=== PATIENT | female | born 1985 | race Caucasian/White ===

== ENCOUNTER 2017-06-22 21:46 | Outpatient (CLI) | payer OTHER ==
[2017-06-22 23:00] LABS: APPEARANCE,URINE CLEAR; BILIRUBIN,URINE NEGATIVE (NEGATIVE); GLUCOSE, URINE NEGATIVE (NEGATIVE); KETONES,URINE 20 mg/dL (NEGATIVE); LEUKOCYTE ESTERASE,URINE NEGATIVE (NEGATIVE); NITRITE,URINE NEGATIVE (NEGATIVE); PROTEIN,URINE NEGATIVE (NEGATIVE); URINE SPECIFIC GRAVITY 1.003; UROBILINOGEN,URINE NEGATIVE mg/dL (<2.0)
[2017-06-22] MEDS ORDERED: CEFAZOLIN 2 GM/D5W RTU 2 GM/50 ML RTUPB IV ONE ×2 (23:00→23:22)
[2017-06-22] MEDS ORDERED: ACETAMINOPHEN 325 MG TABLET PO ONE (23:00)
[2017-06-22 23:16] LABS: URINE BARBITURATES SCREEN NEGATIVE; URINE METHADONE SCREEN NEGATIVE; URINE OPIATES LOW NEGATIVE; URINE PHENCYCLIDINE SCREEN NEGATIVE
[2017-06-22] MEDS ORDERED: ACETAMINOPHEN 325 MG TABLET ONE (23:21)
[2017-06-22] MEDS: RINGERS SOLUTION,LACTATED 1,000 ML IV PRN (23:26)
[2017-06-22 23:33] LABS: ABSOLUTE EOSINOPHILS # (AUTO) 0.2 10^3/uL (0.0-0.6); ABSOLUTE LYMPHOCYTES (AUTO) 0.6 10^3/uL (0.5-4.7); ABSOLUTE MONOCYTES (AUTO) 0.5 10^3/uL (0.1-1.4); ABSOLUTE NEUT (AUTO) 6.4 10^3/uL (1.7-8.2); BASOPHILS % (AUTO) 0.3 % (0-2); EOSINOPHILS % (AUTO) 2.2 % (0-6); HEMATOCRIT 31.8 % (36.0-47.0); HGB HCT DIFFERENCE 1.2; LYMPHOCYTES % (AUTO) 7.4 % (13-45); MEAN CORPUSCULAR HEMOGLOBIN 28.3 pg (27.0-33.4); MEAN CORPUSCULAR HGB CONC 34.6 g/dL (32.0-36.0); MEAN CORPUSCULAR VOLUME 82 fl (80-97); MONOCYTES % (AUTO) 6.6 % (3-13); RED BLOOD COUNT 3.88 10^6/uL (3.72-5.28); RED CELL DISTRIBUTION WIDTH 14.6 % (11.5-14.0); SEGMENTED NEUTROPHILS % (AUTO) 83.5 % (42-78); WHITE BLOOD COUNT 7.7 10^3/uL (4.0-10.5)
[2017-06-23 00:05] LABS: ALANINE AMINOTRANSFERASE 27 U/L (9-52); ALBUMIN 3.3 g/dL (3.5-5.0); ALKALINE PHOSPHATASE 97 U/L (38-126); ANION GAP 10 (5-19); ASPARTATE AMINO TRANSFERASE 30 U/L (14-36); BILIRUBIN,DIRECT 0.3 mg/dL (0.0-0.4); BILIRUBIN,TOTAL 0.4 mg/dL (0.2-1.3); CALCIUM 9.9 mg/dL (8.4-10.2); CARBON DIOXIDE 21 mmol/L (22-30); CHLORIDE 105 mmol/L (98-107); CREATININE RESULT 0.53 mg/dL (0.52-1.25); GLUCOSE 89 mg/dL (75-110); POTASSIUM 3.5 mmol/L (3.6-5.0); SODIUM 135.8 mmol/L (137-145); TOTAL PROTEIN 6.4 g/dL (6.3-8.2)
[2017-06-23 00:06] LABS: BLOOD UREA NITROGEN < 2 mg/dL (7-20)
[2017-06-23] MEDS: RINGERS SOLUTION,LACTATED 1,000 ML IV PRN (00:32)
--- NOTE | 2017-06-23 03:00 | Non Stress Test Report ---
Non Stress Test Datetime Report Generated by CPN: 06/23/2017 03:00 DEMOGRAPHIC Test Number: 1 EGA NST: 32.3 INDICATION Indication for Study: Ordered by Provider VITAL SIGNS Temperature - NST: 100.0 Pulse - NST: 114 RESP - NST: 16 NBPSYS NST: 98 NBPDIA NST: 49 URINE RESULTS Urine Protein, NST: Negative Urine Ketones - NST: Positive Urine Glucose - NST: Negative Urine Blood - NST: Negative MONITORING Monitor Explained: Monitor Explained; Test Explained; Patient Verbalized Understanding Time on Monitor: 06/22/2017 22:15 Time off Monitor: 06/23/2017 01:53 NST Duration: 218 NST INTERVENTIONS NST Interventions: PO Hydration; IV Fluids BABY A: [id number] BABY A Movement : Present; Decreased Contraction Frequency : irregular with UI FHR Baseline : 135 Accelerations : 15X15 Decelerations : None Variability : Moderate 6-25bpm NST Review: Meets Criteria for Reactive NST NST Review and Verified By : Elias Clifford RN NST Results: Reactive NST REPORT Report Trigger: Send Report
== END 2017-06-23 02:11 | disposition home or self-care (01) ==
LOC: LC 21:46
PROVIDERS: ATTEND Specialist
PROC: 4A1HXCZ Monitoring of Products of Conception, Cardiac Rate, External Approach (ICD-10-PCS; principal; 2017-06-22)
DX: O47.03 False labor before 37 completed weeks of gestation, third trimester (principal); O23.43 Unspecified infection of urinary tract in pregnancy, third trimester; Z3A.32 32 weeks gestation of pregnancy
CPT/HCPCS: 59025; 36415; 87070; 87880; 85025; 86308; 80053; 81001; 80307; J0690

== ENCOUNTER 2017-08-15 13:31 | Inpatient (IN) | payer OTHER ==
[2017-08-15] MEDS ORDERED: RINGERS SOLUTION,LACTATED 300 ML IV ONE (14:40)
[2017-08-15] MEDS ORDERED: OXYTOCIN/NORMAL SALINE 20 UNIT/1,000 ML RTUINJ IV PRN (14:40)
[2017-08-15 14:41] LABS: APPEARANCE,URINE CLEAR; BILIRUBIN,URINE NEGATIVE (NEGATIVE); GLUCOSE, URINE NEGATIVE (NEGATIVE); KETONES,URINE TRACE mg/dL (NEGATIVE); LEUKOCYTE ESTERASE,URINE NEGATIVE (NEGATIVE); NITRITE,URINE NEGATIVE (NEGATIVE); PROTEIN,URINE NEGATIVE (NEGATIVE); URINE SPECIFIC GRAVITY 1.005; UROBILINOGEN,URINE NEGATIVE mg/dL (<2.0)
[2017-08-15 15:07] LABS: URINE BARBITURATES SCREEN NEGATIVE; URINE METHADONE SCREEN NEGATIVE; URINE OPIATES LOW NEGATIVE; URINE PHENCYCLIDINE SCREEN NEGATIVE
[2017-08-15 15:30] LABS: ABSOLUTE EOSINOPHILS # (AUTO) 0.5 10^3/uL (0.0-0.6); ABSOLUTE MONOCYTES (AUTO) 0.7 10^3/uL (0.1-1.4); ABSOLUTE NEUT (AUTO) 7.5 10^3/uL (1.7-8.2); BASOPHILS % (AUTO) 0.3 % (0-2); EOSINOPHILS % (AUTO) 4.5 % (0-6); HEMATOCRIT 32.8 % (36.0-47.0); HEMOGLOBIN 11.5 g/dL (12.0-15.5); HGB HCT DIFFERENCE 1.7; MEAN CORPUSCULAR HEMOGLOBIN 28.3 pg (27.0-33.4); MEAN CORPUSCULAR HGB CONC 35.2 g/dL (32.0-36.0); MEAN CORPUSCULAR VOLUME 80 fl (80-97); MONOCYTES % (AUTO) 6.2 % (3-13); RED BLOOD COUNT 4.08 10^6/uL (3.72-5.28); RED CELL DISTRIBUTION WIDTH 16.2 % (11.5-14.0); WHITE BLOOD COUNT 10.7 10^3/uL (4.0-10.5)
[2017-08-15] MEDS ORDERED: OXYTOCIN/NORMAL SALINE 20 UNIT/1,000 ML RTUINJ ONE (15:39)
[2017-08-15] MEDS ORDERED: MISOPROSTOL 0.1 MG TABLET PV ONE (20:50)
[2017-08-15] MEDS ORDERED: MISOPROSTOL 0.1 MG TABLET PO ONE (20:53)
[2017-08-15] MEDS ORDERED: ZOLPIDEM TARTRATE 5 MG TABLET PO ONE (20:54)
[2017-08-15] MEDS ORDERED: MISOPROSTOL 0.1 MG TABLET ONE (22:12)
[2017-08-15] MEDS: RINGERS SOLUTION,LACTATED 1,000 ML IV PRN (22:12)
[2017-08-16] MEDS ORDERED: MISOPROSTOL 0.1 MG TABLET PO SCH (02:00)
[2017-08-16] MEDS ORDERED: MISOPROSTOL 0.1 MG TABLET PV SCH (02:00)
[2017-08-16] MEDS ORDERED: MISOPROSTOL 0.1 MG TABLET ONE (02:27)
[2017-08-16] MEDS: RINGERS SOLUTION,LACTATED 1,000 ML IV PRN ×3 (04:20→15:11)
[2017-08-16] MEDS ORDERED: CLINDAMYCIN 900 MG/D5W RTU 50 ML IV ONE ×2 (07:43→15:30)
[2017-08-16] MEDS: CLINDAMYCIN 900 MG/D5W RTU 50 ML IV SCH ×2 (07:45→15:40)
[2017-08-16] MEDS ORDERED: EPHEDRINE SULFATE INJ 50 MG/1 ML AMPULE ONE (08:29)
[2017-08-16] MEDS ORDERED: FENTANYL/BUPIVACAINE/NS/PF 200 MCG/100 ML RTUINJ EPI ONE (08:30)
[2017-08-16] MEDS ORDERED: BUPIVACAINE HCL 0.25 % INJ/PF (2.5 MG/1 ML) 30 ML VIAL ONE (08:30)
[2017-08-16] MEDS ORDERED: FENTANYL/BUPIVACAINE/NS/PF 200 MCG/100 ML RTUINJ EPI PRN (08:34)
[2017-08-16] MEDS ORDERED: EPHEDRINE SULFATE INJ 50 MG/1 ML AMPULE IV PRN (08:34)
[2017-08-16] MEDS ORDERED: BUPIVACAINE HCL 0.25 % INJ/PF (2.5 MG/1 ML) 30 ML VIAL INFIL ONE (08:34)
[2017-08-16] MEDS ORDERED: BENZOIN/ALOE VERA/STORAX/TOLU TINCTURE 60 ML TP PRN (08:34)
[2017-08-16] MEDS ORDERED: OXYTOCIN/NORMAL SALINE 20 UNIT/1,000 ML RTUINJ IV PRN (08:35)
[2017-08-16] MEDS ORDERED: FENTANYL CITRATE INJ/PF 100 MCG/2 ML AMPUL ONE (15:01)
[2017-08-16] MEDS ORDERED: ONDANSETRON HCL INJ/PF 4 MG/2 ML SDV ONE (15:49)
[2017-08-16] MEDS ORDERED: ACETAMINOPHEN WITH CODEINE #3 TABLET ONE (16:24)
[2017-08-16] MEDS ORDERED: IBUPROFEN 800 MG TABLET ONE (16:25)
--- NOTE | 2017-08-16 17:41 | Delivery Summary ---
Del Sum A-C Datetime Report Generated by CPN: 08/16/2017 17:40 DELIVERY PERSONNEL DELIVERY PERSONNEL: [id number] Delivery Doctor:: Anamaria Platt MD Labor and Delivery Nurse:: Margaret Rubio RN Nursery Nurse:: Bobbi Welch RN Estimator Project Manager/DEMOLITIONIST: Jose De Jesus Aaron, SNOW FENCE ERECTOR MATERNAL INFORMATION Delivery Anesthesia: Epidural Medications After Delivery: Pitocin Drip 20 Units/1000ml NSS Estimated Blood Loss (ml): 250 Maternal Complications: None Provider Comments: Pt progressed to over intact perineum. Head delivered MESERET. Tight double nuchal cord clamped and cut on perineum. Shoulders and body delivered easliy thereafter. CHOPPER FEEDER/OP bulb suctioned. Apgars 6 and 8. Infeant had terminal meconium but no meconium noted before that. Placenta spont and intact. EBL 250. Uncertain length of ROM. LABOR SUMMARY EDC: 08/14/2017 00:00 No. Babies in Womb: 1 Attempted: No Labor Anesthesia: Epidural LABOR INFORMATION Reason for Induction: Oligohydramnios Onset of Labor: 08/16/2017 13:50 Complete Dilatation: 08/16/2017 15:47 Oxytocin: Induction Group B Beta Strep: Negative Steroids Given: None Reason Steroids Not Administered: Not Applicable MEMBRANES Membranes Rupture Method: Spontaneous Amniotic Fluid Color: Clear Amniotic Fluid Amount: None Amniotic Fluid Odor: Normal STAGES OF LABOR Stage 1 hr: 1 Stage 1 min: 57 Stage 2 hr: 0 Stage 2 min: 19 Stage 3 hr: 0 Stage 3 min: 3 Total Time in Labor hr: 2 Total Time in Labor min: 19 VAGINAL DELIVERY Episiotomy: None Laceration Extension: N/A Laceration Type: None Laceration Repair: Not Applicable Sponge Count Correct: Yes Sharps Count Correct: Yes CSECTION DELIVERY Primary Indication: N/A Secondary Indication: N/A CSection Incidence: N/A Labor: N/A Elective: N/A CSection Incision: N/A BABY A INFORMATION Delivery Date/Time: 08/16/2017 16:06 Method of Delivery: Vaginal Born in Route : No : N/A Forceps: N/A Vacuum Extraction: N/A Shoulder Dystocia : No PRESENTATION/POSITION BABY A Presentation: Cephalic Cephalic Presentation: Vertex Vertex Position: Left Occipital Anterior Breech Presentation: N/A PLACENTA INFORMATION BABY A Placenta Delivery Time : 08/16/2017 16:09 Placenta Method of Delivery: Spontaneous Placenta Status: Delivered SCORES BABY A Heart Rate 1 min: >100 bpm Resp Effort 1 min: Slow, Irregular Reflex Irritability 1 min: Cough or Sneeze or Pulls Away Muscle Tone 1 min: Some Flexion of Extremities Color 1 min: Blue/Pale Resuscitation Effort 1 min: Tactile Stimulation SCORE 1 MIN: 6 Heart Rate 5 min: >100 bpm Resp Effort 5 min: Slow, Irregular Reflex Irritability 5 min: Cough or Sneeze or Pulls Away Muscle Tone 5 min: Active Motion Color 5 min: Body [place], Extremities Blue Resuscitation Effort 5 min: Tactile Stimulation SCORE 5 MIN: 8 INFANT INFORMATION BABY A Gestational Age at Delivery: 40.2 Gestational Status: Full Term- 39- 40.6 Weeks Outcome : Liveborn Condition : Stable Infant Sex: Male IDENTIFICATION BABY A Infant Verification Date/Time: 08/16/2017 16:30 ID Band Number: [id number] Mother's Name Verified: Yes RN Verifying : B Baidy RN Additional Verifying Personnel: A Torres RN WEIGHT/LENGTH BABY A Birthweight (gm): 3295 Weight (lb): 7 Infant Weight (oz): 4 Length (in): 20.00 Infant Length (cm): 50.80 CORD INFORMATION BABY A No. Cord Vessels: 3 Nuchal Cord : Around Neck x2, Tight Cord Blood Taken: Yes-For Eval (Mom's Blood Type - or O+) Suction: Mouth; Nose ASSESSMENT BABY A Complications: Multiple Variable Decels; Oligohydramnios Infant Complications- Other: Terminal Mec, tight nuchal Physical Findings at Delivery: Bruising Respirations: Intercostal Retractions; Tachypnea Skin to Skin: No Circle Cutting Saw Operator/ALS Called : No Infant Care By: Karina Welch RN Transferred To: [facility] BABY B INFORMATION : N/A SIGNATURES Signature: with User ID: [email or web address]
--- NOTE | 2017-08-16 18:13 | Admission Physical ---
Datetime Report Generated by CPN: 08/16/2017 18:12 CURRENT ADMISSION Hx Assessment: The History has been Reviewed and is Current Chief Complaint: Sent from OB Office for Evaluation and Treatment - Please Specify Chief Complaint Other: colin of 1.7 Indication for Induction: Oligohydramnios Admit Impression- Other: leaking since friday Admit Plan: Admit to Unit; Initiate Labor Induction Protocol ALLERGIES Medication Allergies: Yes Medication Allergies: Penicillins/AZ/Generalized brenden (08/15/2017); peanut/Anaphylaxis (08/15/2017); garlic/SV/difficulty swal (08/15/2017); onion/SV/difficulty swal (08/15/2017); corn/SV/difficulty swal (08/15/2017); oats/SV/difficulty swal (08/15/2017); rice/SV/difficulty swal (08/15/2017); tree nut/SV/difficulty swal (08/15/2017); soy/SV/difficulty swal (08/15/2017) Medication Allergies: Penicillins/AZ/Generalized brenden (08/15/2017); peanut/Anaphylaxis (06/22/2017); garlic/SV/difficulty swal (08/15/2017); onion/SV/difficulty swal (08/15/2017); corn/SV/difficulty swal (08/15/2017); oats/SV/difficulty swal (08/15/2017); rice/SV/difficulty swal (08/15/2017); tree nut/SV/difficulty swal (08/15/2017); soy/SV/difficulty swal (08/15/2017) Medication Allergies: Penicillins/AZ/Generalized brenden (06/22/2017); peanut/Anaphylaxis (06/22/2017); garlic/SV/difficulty swal (06/22/2017); onion/SV/difficulty swal (06/22/2017); corn/SV/difficulty swal (06/22/2017); oats/SV/difficulty swal (06/22/2017); rice/SV/difficulty swal (06/22/2017); tree nut/SV/difficulty swal (06/22/2017); soy/SV/difficulty swal (06/22/2017) Medication Allergies: Penicillins (06/22/2017); peanut (06/22/2017); garlic (06/22/2017); onion (06/22/2017); corn (06/22/2017); oats (06/22/2017); rice (06/22/2017); tree nut (06/22/2017); soy (06/22/2017) Latex: Latex Allergies Food Allergies: peanut, all nuts, garlic, soy, onion, corn, rice, oats, Seafood OBSTETRICAL HISTORY EDC: 08/14/2017 00:00 : 2 Para: 1 Term: 1 : 0 SAB: 0 IAB: 0 Ectopic: 0 Livin Cesareans: 0 VBACs: 0 Multiple Births: 0 (Annotations: Data stored by CPN on behalf of user) Gestational Diabetes: No Rh Sensitization: No Incompetent Cervix: No HIMANSHU: No Infertility: No ART Treatment: No Uterine Anomaly: No IUGR: No Hx Previous C/S: No Macrosomia: No Hx Loss/Stillborn: No PIH: No Hx : No Placenta Previa/Abruption: No Depression/PP Depression: No PTL/PROM: No Post Hemorrhage: No Current Procedures: Ultrasound; NST Obstetrical History Comments: - 2014 G2- Current SEE RECORDS Alcohol: No Marijuana : No Cocaine: No Other Illicit Drugs: No Cigarettes: Never Smoker. 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 Surgery: No Heart Disease: No Hosp/Surgery: No Autoimmune Disorder: No Anesthetic Complications: No Kidney Disease: No Abnormal Pap Smear: No Neuro/Epilepsy: No Psychiatric Disorders: No Other Medical Diseases: No Hepatitis/Liver Disease: No Significant Family History: No Varicosities/Phlebitis: No Trauma/Violence : No Thyroid Dysfunction: No Medical History Comments: EOS, ezcema, food allergies, esophogeal scarring, upper endoscopy x 4, sinus surgery, oral surgery INFECTIOUS HISTORY Gonorrhea: No Genital Herpes: Yes Chlamydia: No Tuberculosis: No Syphilis: No Hepatitis: No HIV/AIDS Exposure: No Rash or Viral Illness: No HPV: No PHYSICAL EXAM General: Normal HEENT: Normal Neurologic: Normal Thyroid: Deferred Heart: Normal Lungs: Normal Breast: Normal Back: Normal Abdomen: Normal Genitourinary Exam: Normal Extremities: Normal DTRs: Normal Pelvic Type: Adequate Physical Exam Comments: pelvis proven 6 lbs 8oz, denies hsv lesions or prodromal symptoms Vital Signs: Reviewed VAGINAL EXAM Dilatation: 2 Effacement: 80 Station: -1 Contraction Comments: irregular FETUS A EGA: 40.1 Monitoring: External US FHR- Baseline: 135 Variability: Moderate 6-25bpm Accelerations: 15X15 Decelerations: None FHR Category: Category I Estimated Weight (gm): 3600 Presentation: Vertex Admit Comment: ? SROM on friday has felt continously wet. COLIN in office 1.7. No evidence of SROM. Hx elevated elevated white count that has had follow up Admit to L _ D Pitocin for labor induction. GBS neg. Afebrile May have epidural prn PLANS FOR LABOR AND DELIVERY Labor and Delivery: None Pain Management: Epidural Feeding Preference: Breast Benefit of Breast Feed Discussed: Yes Circumcision: Yes INFORMED CONSENT Assignment: Shonda Magana MD Signature: with User ID: Tucker : with User ID: [email or web address]
[2017-08-16] MEDS ORDERED: ACETAMINOPHEN WITH CODEINE #3 TABLET PO PRN ×2 (18:29)
[2017-08-16] MEDS ORDERED: DIPH/PERTUSS(ACELL)/TETANUS VAC/PF 0.5 ML SYR (>=10YO) IM PRN (18:29)
[2017-08-16] MEDS ORDERED: DIBUCAINE 1% OINTMENT 28 GM TP PRN (18:29)
[2017-08-16] MEDS ORDERED: MEASLES,MUMPS&RUBELLA VACC/PF 0.5 ML VIAL SUBCUT PRN (18:29)
[2017-08-16] MEDS ORDERED: BENZOCAINE/MENTHOL AEROSOL SPRAY 56 ML TOP PRN (18:29)
[2017-08-16] MEDS ORDERED: ZOLPIDEM TARTRATE 5 MG TABLET PO PRN (18:29)
[2017-08-16] MEDS: IBUPROFEN 800 MG TABLET PO SCH (21:53)
[2017-08-17] MEDS: IBUPROFEN 800 MG TABLET PO SCH ×3 (06:50→21:20)
[2017-08-17 07:41] LABS: HEMATOCRIT 35.7 % (36.0-47.0); HEMOGLOBIN 11.8 g/dL (12.0-15.5); HGB HCT DIFFERENCE -0.3; MEAN CORPUSCULAR VOLUME 82 fl (80-97); RED BLOOD COUNT 4.36 10^6/uL (3.72-5.28); RED CELL DISTRIBUTION WIDTH 16.3 % (11.5-14.0); WHITE BLOOD COUNT 13.6 10^3/uL (4.0-10.5)
--- NOTE | 2017-08-17 09:19 | PDOC PROGRESS REPORT ---
Subjective-OB Subjective: Post Delivery Day: 1 32 year old. Denies any needs at this time, states lochia is stable, voiding without difficulty, pain well controlled. Physical Exam (OB) Vital Signs: Temp Pulse Resp BP Pulse Ox 98.1 F 64 16 125/62 98 08/16/17 21:51 08/16/17 21:51 08/16/17 21:51 08/16/17 21:51 08/16/17 21:51 Intake & Output 08/16/17 08/17/17 08/18/17 06:59 06:59 06:59 Weight 76.35 kg - Lochia Lochia Amount: Small 10-25 ml Lochia Color: Rubra/Red - Abdomen Description: Soft, Round Hernia Present: No Fundal Description: Firm, Midline Fundal Height: u/u - u/2 Objective-Diagnostic Laboratory: 08/17/17 07:21 08/17/17 07:21 WBC 13.6 H RBC 4.36 Hgb 11.8 L Hct 35.7 L MCV 82 MCH 27.0 MCHC 33.0 RDW 16.3 H Plt Count 194 Assessment and Plan(PN) - Assessment and Plan (1) Delivery normal Is this a current diagnosis for this admission?: Yes Plan: routine pp care. - Time Spent with Patient Time with patient: Less than 15 minutes Critical Time spent with patient: Less than 15 minutes Medications reviewed and adjusted accordingly: Yes - Disposition Anticipated Discharge: Home Within: within 24 hours
[2017-08-17] MEDS: DOCUSATE SODIUM 100 MG CAPSULE PO SCH ×2 (10:00→17:26)
[2017-08-17] MEDS: PRENATAL VITAMIN W-O CA NO5/FE FUMARATE/FA CAPSULE PO SCH (10:01)
[2017-08-17] MEDS: FERROUS SULFATE 325 MG TABLET PO SCH ×2 (10:01→17:27)
[2017-08-17] MEDS: SENNOSIDES/DOCUSATE 8.6-50 MG 1 EACH TABLET PO SCH (14:30)
[2017-08-18] MEDS: IBUPROFEN 800 MG TABLET PO SCH ×2 (06:36→13:14)
[2017-08-18 08:33] VITALS: BP 117/67
[2017-08-18] MEDS: PRENATAL VITAMIN W-O CA NO5/FE FUMARATE/FA CAPSULE PO SCH (09:15)
[2017-08-18] MEDS: DOCUSATE SODIUM 100 MG CAPSULE PO SCH (09:15)
[2017-08-18] MEDS: SENNOSIDES/DOCUSATE 8.6-50 MG 1 EACH TABLET PO SCH (09:15)
[2017-08-18] MEDS: FERROUS SULFATE 325 MG TABLET PO SCH (09:15)
--- NOTE | 2017-08-18 12:05 | PDOC DISCHARGE SUMMARY ---
Final Diagnosis Discharge Date: 08/18/17 Discharge Data - Discharge Medication Home Medications: Fluticasone/Salmeterol [Advair 250-50 Diskus 28 dose] 1 puff IH Q2DAYS 06/22/17 Loratadine [Claritin 10 mg Tablet] 1 tab PO DAILY 06/22/17 Omeprazole Magnesium [Prilosec Otc] 2 tab PO DAILY 06/22/17 No122/Iron/Folic Acid [ Multi Tablet] 1 tab PO DAILY 06/22/17 Valacyclovir HCl [Valtrex] 1 tab PO DAILY 08/15/17 Ibuprofen [Motrin 800 mg Tablet] 800 mg PO Q8HP PRN #30 tablet 08/18/17 Reason(s) for Admission: Induction of Labor - oligohydramnious Procedures: Ultrasound Intrapartum Procedure(s): Spontaneous Vaginal Delivery - Diagnosis Test Laboratory: Temp Pulse Resp BP Pulse Ox 97.9 F 69 15 117/67 100 08/18/17 08:25 08/18/17 08:25 08/18/17 08:25 08/18/17 08:25 08/18/17 08:25 08/15/17 08/15/17 08/17/17 14:11 15:02 07:21 RBC 4.08 4.36 Hgb 11.5 L 11.8 L Hct 32.8 L 35.7 L Urine Opiates Screen NEGATIVE - Discharge information/Instructions Discharge Activity: Activity As Tolerated, Balance Activity w/Rest, No Lifting Over 10 Pounds, No Lifting/Push/Pulling, Pelvic Rest, Slowly Increase Activity, No tub bath Discharge Diet: Regular Disposition: HOME, SELF-CARE Follow up with: [facility] in: 4, Weeks
== END 2017-08-18 16:50 | disposition home or self-care (01) | DRG 775 ==
LOC: LC 13:31 → LR 13:47 → 2S 08-16 18:05
PROVIDERS: ADMIT Specialist; ATTEND Specialist
PROC: 10E0XZZ Delivery of Products of Conception, External Approach (ICD-10-PCS; principal; 2017-08-16)
PROC: 3E0234Z Introduction of Serum, Toxoid and Vaccine into Muscle, Percutaneous Approach (ICD-10-PCS; 2017-08-18)
DX: O41.03X0 Oligohydramnios, third trimester, not applicable or unspecified (principal); O69.1XX0 Labor and delivery complicated by cord around neck, with compression, not applicable or unspecified; O76 Abnormality in fetal heart rate and rhythm complicating labor and delivery; O77.0 Labor and delivery complicated by meconium in amniotic fluid; Z3A.40 40 weeks gestation of pregnancy; Z37.0 Single live birth; Z23 Encounter for immunization
CPT/HCPCS: 36415; 80307; 81005; 85025; 85027; 86592; 86850; 86900; 86901; 88307; 90715; J2405; J2590; J3010; J3490

== ENCOUNTER 2017-11-11 14:17 | Emergency (ER) | payer OTHER ==
[2017-11-11 14:23] VITALS: BP 129/79
[2017-11-11 15:32] LABS: ABSOLUTE BASOPHILS # (AUTO) 0.1 10^3/uL (0.0-0.2); ABSOLUTE EOSINOPHILS # (AUTO) 2.3 10^3/uL (0.0-0.6); ABSOLUTE LYMPHOCYTES (AUTO) 2.9 10^3/uL (0.5-4.7); ABSOLUTE MONOCYTES (AUTO) 0.6 10^3/uL (0.1-1.4); ABSOLUTE NEUT (AUTO) 8.2 10^3/uL (1.7-8.2); BASOPHILS % (AUTO) 0.9 % (0-2); EOSINOPHILS % (AUTO) 16.4 % (0-6); HEMATOCRIT 40.1 % (36.0-47.0); HEMOGLOBIN 13.2 g/dL (12.0-15.5); HGB HCT DIFFERENCE -0.5; LYMPHOCYTES % (AUTO) 20.8 % (13-45); MEAN CORPUSCULAR HEMOGLOBIN 27.9 pg (27.0-33.4); MEAN CORPUSCULAR HGB CONC 32.9 g/dL (32.0-36.0); MEAN CORPUSCULAR VOLUME 85 fl (80-97); RED BLOOD COUNT 4.73 10^6/uL (3.72-5.28); RED CELL DISTRIBUTION WIDTH 14.9 % (11.5-14.0); SEGMENTED NEUTROPHILS % (AUTO) 57.9 % (42-78); WHITE BLOOD COUNT 14.1 10^3/uL (4.0-10.5)
[2017-11-11 15:42] LABS: APPEARANCE,URINE SLIGHTLY-CLOUDY; BILIRUBIN,URINE NEGATIVE (NEGATIVE); GLUCOSE, URINE NEGATIVE (NEGATIVE); KETONES,URINE NEGATIVE (NEGATIVE); LEUKOCYTE ESTERASE,URINE TRACE (NEGATIVE); NITRITE,URINE NEGATIVE (NEGATIVE); PROTEIN,URINE NEGATIVE (NEGATIVE); URINE SPECIFIC GRAVITY 1.021; UROBILINOGEN,URINE NEGATIVE mg/dL (<2.0)
[2017-11-11 15:52] LABS: ALANINE AMINOTRANSFERASE 30 U/L (9-52); ALBUMIN 4.2 g/dL (3.5-5.0); ALKALINE PHOSPHATASE 103 U/L (38-126); ANION GAP 11 (5-19); ASPARTATE AMINO TRANSFERASE 25 U/L (14-36); BILIRUBIN,DIRECT 0.2 mg/dL (0.0-0.4); BILIRUBIN,TOTAL 0.2 mg/dL (0.2-1.3); BLOOD UREA NITROGEN 14 mg/dL (7-20); CALCIUM 9.2 mg/dL (8.4-10.2); CARBON DIOXIDE 29 mmol/L (22-30); CHLORIDE 105 mmol/L (98-107); CREATININE RESULT 0.88 mg/dL (0.52-1.25); GLUCOSE 94 mg/dL (75-110); LIPASE 113.8 U/L (23-300); POTASSIUM 3.6 mmol/L (3.6-5.0); TOTAL PROTEIN 6.8 g/dL (6.3-8.2)
--- NOTE | 2017-11-11 16:01 | RADIOLOGY REPORT (SQ) ---
EXAM DESCRIPTION: U/S ABDOMEN LIMITED W/O DOP COMPLETED DATE/TIME: 11/11/2017 3:52 pm REASON FOR STUDY: ruq pain COMPARISON: None. TECHNIQUE: Dynamic and static grayscale images acquired of the abdomen and recorded on PACS. Additio nal selected color Doppler and spectral images recorded. LIMITATIONS: None. FINDINGS: PANCREAS: No masses. Visualized pancreatic duct normal caliber. LIVER: No masses. Echotexture normal. LIVER VASCULATURE: Normal directional flow of the main portal vein and hepatic veins. GALLBLADDER: Echogenic wall with ring down artifact consistent with adenomyomatosis. ULTRASOUND-DETECTED DRAKE'S SIGN: Negative. INTRAHEPATIC DUCTS AND COMMON DUCT: CBD and intrahepatic ducts normal caliber. No filling defects. INFERIOR VENA CAVA: Normal flow. AORTA: No aneurysm. RIGHT KIDNEY: Normal size. Normal echogenicity. No solid or suspicious masses. No hydronephrosis. No calcifications. PERITONEAL AND RIGHT PLEURAL SPACE: No ascites or effusions. OTHER: No other significant findings. IMPRESSION: ADENOMYOMATOSIS OF THE GALLBLADDER. NO GALLSTONES OR OTHER SIGNIFICANT FINDINGS. OTHER VARGHESE UNREMARKABLE RIGHT UPPER QUADRANT ULTRASOUND. TECHNICAL DOCUMENTATION: JOB ID: [id number] [employer]- All Rights Reserved
--- NOTE | 2017-11-11 16:57 | ER Document Report ---
ED General - General Chief Complaint: Abdominal Pain Stated Complaint: ABDOMINAL PAIN Time Seen by Provider: 11/11/17 15:10 Mode of Arrival: Ambulatory Information source: Patient Notes: Patient complains of intermittent right upper quadrant abdominal pain. She states it is sharp. It is accompanied by decreased appetite. It does radiate into her back. It does get worse after eating and better with rest. No diarrhea and no problems with urination. No vaginal symptoms. The pain is moderate. TRAVEL OUTSIDE OF THE [place] IN LAST 30 DAYS: No - Related Data Allergies/Adverse Reactions: tree nut Allergy (Severe, Verified 08/15/17 14:58) difficulty swallowing, esophogeal irritation Penicillins Allergy (Mild, Verified 08/15/17 14:59) Generalized rash peanut Allergy (Verified 08/15/17 14:59) Anaphylaxis Past Medical History - General Information source: Patient - Social History Smoking Status: Never Smoker Frequency of alcohol use: None Drug Abuse: None Family History: Reviewed & Not Pertinent Patient has suicidal ideation: No Patient has homicidal ideation: No Pulmonary Medical History: Reports: Hx Asthma Neurological Medical History: Reports: Hx Migraine Renal/ Medical History: Denies: Hx Peritoneal Dialysis Musculoskeltal Medical History: Reports Hx Musculoskeletal Trauma Past Surgical History: Reports: Hx Oral Surgery - Immunizations Immunizations up to date: Yes Hx Diphtheria, Pertussis, Tetanus Vaccination: Yes Review of Systems - Review of Systems Constitutional: denies: Chills, Fever Cardiovascular: denies: Chest pain, Palpitations Respiratory: denies: Cough, Short of breath Gastrointestinal: Abdominal pain, Nausea, Vomiting -: Yes All other systems reviewed and negative Physical Exam - Vital signs Vitals: Temp Pulse Resp BP Pulse Ox 98.1 F 87 20 129/79 H 100 11/11/17 14:23 11/11/17 14:23 11/11/17 14:23 11/11/17 14:23 11/11/17 14:23 Interpretation: Hypertensive - General General appearance: Appears well, Alert - HEENT Head: Normocephalic, Atraumatic Eyes: Normal Pupils: PERRL - Respiratory Respiratory status: No respiratory distress Chest status: Nontender Breath sounds: Normal Chest palpation: Normal - Cardiovascular Rhythm: Regular Heart sounds: Normal auscultation Murmur: No - Abdominal Inspection: Normal Distension: No distension Bowel sounds: Normal Tenderness: Nontender Organomegaly: No organomegaly - Back Back: Normal, Nontender - Extremities General upper extremity: Normal inspection, Nontender, Normal color, Normal ROM , Normal temperature General lower extremity: Normal inspection, Nontender, Normal color, Normal ROM , Normal temperature, Normal weight bearing. No: Tip's sign - Neurological Neuro grossly intact: Yes Cognition: Normal Orientation: AAOx4 Yazmin Coma Scale Eye Opening: Spontaneous [place] Coma Scale Verbal: Oriented [place] Coma Scale Motor: Obeys Commands Yazmin Coma Scale Total: 15 Speech: Normal Motor strength normal: LUE, RUE, LLE, RLE Sensory: Normal - Psychological Associated symptoms: Normal affect, Normal mood - Skin Skin Temperature: Warm Skin Moisture: Dry Skin Color: Normal Course - Vital Signs Vital signs: Temp Pulse Resp BP Pulse Ox 98.1 F 87 20 129/79 H 100 11/11/17 14:23 11/11/17 14:23 11/11/17 14:23 11/11/17 14:23 11/11/17 14:23 - Laboratory Result Diagrams: 11/11/17 15:10 11/11/17 15:10 Laboratory results interpreted by me: 11/11/17 11/11/17 15:10 15:10 WBC 14.1 H RDW 14.9 H Eosinophils % 16.4 H Absolute Eosinophils 2.3 H Urine Blood LARGE H Ur Leukocyte Esterase TRACE H - Diagnostic Test Radiology reviewed: Image reviewed - Ultrasound shows had myomatosis of the gallbladder., Reports reviewed Discharge - Discharge Clinical Impression: Right upper quadrant abdominal pain Condition: Stable Disposition: HOME, SELF-CARE Instructions: Abdominal Pain ([facility]) Additional Instructions: Your blood pressure is mildly elevated. Please have this rechecked within 1 week by your doctor. Your gallbladder has polyps seen on ultrasound. No stones are seen. It is unclear if this is the cause of your pain. Therefore it is recommended that you follow-up with a surgeon as soon as possible. Forms: Elevated Blood Pressure, Return to Work Referrals: MICKY FOX MD [MARISA RUBIO] - Follow up in 1 week
== END 2017-11-11 17:08 | disposition home or self-care (01) ==
LOC: ER 14:17
DX: K82.8 Other specified diseases of gallbladder (principal); R10.11 Right upper quadrant pain; R11.2 Nausea with vomiting, unspecified; R63.0 Anorexia; J45.909 Unspecified asthma, uncomplicated; Z91.018 Allergy to other foods; Z88.0 Allergy status to penicillin; Z87.892 Personal history of anaphylaxis; Z91.010 Allergy to peanuts
CPT/HCPCS: 36415; 76705; 80053; 81001; 81025; 83690; 85025; 99284

== ENCOUNTER 2019-02-12 08:31 | Emergency (ER) | payer OTHER ==
[2019-02-12 08:53] LABS: APPEARANCE,URINE CLEAR; BILIRUBIN,URINE NEGATIVE (NEGATIVE); COLOR,URINE STRAW; GLUCOSE, URINE NEGATIVE (NEGATIVE); KETONES,URINE NEGATIVE (NEGATIVE); LEUKOCYTE ESTERASE,URINE NEGATIVE (NEGATIVE); NITRITE,URINE NEGATIVE (NEGATIVE); PROTEIN,URINE NEGATIVE (NEGATIVE); URINE SPECIFIC GRAVITY 1.001; UROBILINOGEN,URINE NEGATIVE mg/dL (<2.0)
--- NOTE | 2019-02-12 09:28 | ER Document Report ---
ED Medical Screen (RME) - General Chief Complaint: Abdominal Pain Stated Complaint: ABDOMINAL PAIN/FEVER Time Seen by Provider: 02/12/19 09:23 Notes: 33-year-old female patient with left lower quadrant abdominal pain for a few days, now radiating into the low back. Low-grade fever this morning. Some nausea. LMP was 02/04/2019, and finished on 02/08/2019. Brief exam shows patient is quite tender in the left lower quadrant abdomen. There is no CVA percussion tenderness. I have greeted and performed a rapid initial assessment of this patient. A comprehensive ED assessment and evaluation of the patient, analysis of test results and completion of the medical decision making process will be conducted by additional ED providers. TRAVEL OUTSIDE OF THE [place] IN LAST 30 DAYS: No - Related Data Allergies/Adverse Reactions: tree nut Allergy (Severe, Verified 02/12/19 08:33) difficulty swallowing, esophogeal irritation Penicillins Allergy (Mild, Verified 02/12/19 08:33) Generalized rash peanut Allergy (Verified 02/12/19 08:33) Anaphylaxis Past Medical History - Social History Chew tobacco use (# tins/day): No Frequency of alcohol use: Rare Drug Abuse: None Pulmonary Medical History: Reports: Hx Asthma Neurological Medical History: Reports: Hx Migraine Renal/ Medical History: Denies: Hx Peritoneal Dialysis Musculoskeltal Medical History: Reports Hx Musculoskeletal Trauma Past Surgical History: Reports: Hx Oral Surgery - Immunizations Immunizations up to date: Yes Hx Diphtheria, Pertussis, Tetanus Vaccination: Yes Physical Exam - Vital signs Vitals: Temp Pulse Resp BP Pulse Ox 98.0 F 93 16 131/71 H 100 02/12/19 08:50 02/12/19 08:50 02/12/19 08:50 02/12/19 08:50 02/12/19 08:50 Course - Vital Signs Vital signs: Temp Pulse Resp BP Pulse Ox 98.0 F 93 16 131/71 H 100 02/12/19 08:50 02/12/19 08:50 02/12/19 08:50 02/12/19 08:50 02/12/19 08:50
[2019-02-12 09:51] LABS: ABSOLUTE BASOPHILS # (AUTO) 0.1 10^3/uL (0.0-0.2); ABSOLUTE EOSINOPHILS # (AUTO) 0.4 10^3/uL (0.0-0.6); ABSOLUTE LYMPHOCYTES (AUTO) 2.6 10^3/uL (0.5-4.7); ABSOLUTE MONOCYTES (AUTO) 1.1 10^3/uL (0.1-1.4); ABSOLUTE NEUT (AUTO) 11.2 10^3/uL (1.7-8.2); BASOPHILS % (AUTO) 0.5 % (0-2); EOSINOPHILS % (AUTO) 2.5 % (0-6); HEMOGLOBIN 12.4 g/dL (12.0-15.5); LYMPHOCYTES % (AUTO) 16.7 % (13-45); MEAN CORPUSCULAR HEMOGLOBIN 26.8 pg (27.0-33.4); MEAN CORPUSCULAR HGB CONC 33.5 g/dL (32.0-36.0); MEAN CORPUSCULAR VOLUME 80 fl (80-97); MONOCYTES % (AUTO) 7.3 % (3-13); PLATELET COUNT 361 10^3/uL (150-450); RED BLOOD COUNT 4.63 10^6/uL (3.72-5.28); RED CELL DISTRIBUTION WIDTH 14.6 % (11.5-14.0); TOTAL CELLS COUNTED % (AUTO) 100 %; WHITE BLOOD COUNT 15.4 10^3/uL (4.0-10.5)
--- NOTE | 2019-02-12 10:07 | RADIOLOGY REPORT (SQ) ---
EXAM DESCRIPTION: CT ABD/PELVIS WITH IV ONLY COMPLETED DATE/TIME: 02/12/2019 9:59 am REASON FOR STUDY: LLQ abd pain w/ fever, nausea COMPARISON: None. TECHNIQUE: CT scan of the abdomen and pelvis performed using helical scanning technique with dynamic intravenous contrast injection. No oral contrast. Images reviewed with lung, soft tissue, and bone windows. Reconstructed coronal and sagittal MPR images reviewed. Delayed images for evaluation of the urinary system also acquired. All images stored on PACS. All CT scanners at this facility use dose modulation, iterative reconstruction, and/or weight based d osing when appropriate to reduce radiation dose to as low as reasonably achievable (ALARA). [facility]: Dose Right [facility]: CareDose [facility]: Dose Right [facility]: Teradose 4D [facility]: [email or web address] CONTRAST TYPE AND DOSE: contrast/concentration: Isovue 350.00 mg/ml; Total Contrast Delivered: 90.0 ml; Total Saline Delivered: 70.0 ml RENAL FUNCTION: None required. The patient is less than 50 years old. RADIATION DOSE: CT Rad equipment meets quality standard of care and radiation dose reduction techniq ues were employed. CTDIvol: 9.7 - 13.4 mGy. DLP: 1238 mGy-cm.. LIMITATIONS: None. FINDINGS: LOWER CHEST: No significant findings. No nodules or infiltrates. LIVER: Normal size. No masses. No dilated ducts. SPLEEN: Normal size. No focal lesions. PANCREAS: No masses. No significant calcifications. No adjacent inflammation or peripancreatic fluid collections. Pancreatic duct not dilated. GALLBLADDER: Calcified gallstone. No inflammatory changes to suggest cholecystitis. ADRENAL GLANDS: No significant masses or asymmetry. RIGHT KIDNEY AND URETER: No solid masses. No significant calcifications. No hydronephrosis or hyd roureter. LEFT KIDNEY AND URETER: No solid masses. No significant calcifications. No hydronephrosis or hydr oureter. AORTA AND VESSELS: No aneurysm. No dissection. Renal arteries, SMA, celiac without stenosis. RETROPERITONEUM: No retroperitoneal adenopathy, hemorrhage or masses. BOWEL AND PERITONEAL CAVITY: Focal fat stranding about a solitary diverticulum of the proximal descen ding colon (series 3, image 33). APPENDIX: Not clearly visualized. PELVIS: No mass. No free fluid. Normal bladder. ABDOMINAL WALL: No masses. No hernias. BONES: No significant or acute findings. OTHER: No other significant finding. IMPRESSION: 1. Focal fat stranding about a solitary diverticulum of the proximal descending colon, c onsistent with acute diverticulitis. There is no evidence of abscess or perforation. 2. Cholelithiasis. TECHNICAL DOCUMENTATION: JOB ID: [id number] Quality ID # [id number]: Final reports with documentation of one or more dose reduction techniques (e.g., Au tomated exposure control, adjustment of the mA and/or kV according to patient size, use of iterative reconstruction technique) 2010 [employer]- All Rights Reserved Reading location - IP/workstation name: [email or web address]
[2019-02-12 10:14] LABS: ALANINE AMINOTRANSFERASE 22 U/L (9-52); ALBUMIN 4.4 g/dL (3.5-5.0); ALKALINE PHOSPHATASE 85 U/L (38-126); ANION GAP 11 (5-19); ASPARTATE AMINO TRANSFERASE 21 U/L (14-36); BILIRUBIN,DIRECT 0.2 mg/dL (0.0-0.4); BILIRUBIN,TOTAL 0.5 mg/dL (0.2-1.3); BLOOD UREA NITROGEN 13 mg/dL (7-20); CALCIUM 10.5 mg/dL (8.4-10.2); CARBON DIOXIDE 29 mmol/L (22-30); CHLORIDE 101 mmol/L (98-107); GLUCOSE 92 mg/dL (75-110); POTASSIUM 4.1 mmol/L (3.6-5.0); SODIUM 141.3 mmol/L (137-145)
--- NOTE | 2019-02-12 10:15 | ER Document Report ---
ED General - General Chief Complaint: Abdominal Pain Stated Complaint: ABDOMINAL PAIN/FEVER Time Seen by Provider: 02/12/19 09:23 TRAVEL OUTSIDE OF THE [place] IN LAST 30 DAYS: No - HPI Notes: Patient is a 33-year-old female with no significant past medical history presents the emergency department complaining of left lower abdominal pain that has been constant over the last 4 days. Patient states that she did have a fever this morning which has since resolved. She did have an episode of nausea without vomiting a couple days ago as well. She is otherwise able to eat and drink without difficulties or worsening of her symptoms. She is urinating normally and having normal soft bowel movements daily. She has not had any vaginal discharge, odor, or bleeding. She has no concern of STD or STI. Daily ashby states that she does know she has gallstones, but has not had any issues with it. She does have an allergy to penicillins. No other concerns or complaints. Denies any headache, fever, neck pain, URI, sore throat, chest pain, palpitations, syncope, cough, shortness of breath, wheeze, dyspnea, current nausea/vomiting/diarrhea, urinary retention, dysuria, hematuria, or rash. - Related Data Allergies/Adverse Reactions: tree nut Allergy (Severe, Verified 02/12/19 08:33) difficulty swallowing, esophogeal irritation Penicillins Allergy (Mild, Verified 02/12/19 08:33) Generalized rash peanut Allergy (Verified 02/12/19 08:33) Anaphylaxis Past Medical History - Social History Smoking Status: Never Smoker Chew tobacco use (# tins/day): No Frequency of alcohol use: Rare Drug Abuse: None Family History: Reviewed & Not Pertinent Patient has suicidal ideation: No Patient has homicidal ideation: No Pulmonary Medical History: Reports: Hx Asthma Neurological Medical History: Reports: Hx Migraine Renal/ Medical History: Denies: Hx Peritoneal Dialysis Musculoskeletal Medical History: Reports Hx Musculoskeletal Trauma Past Surgical History: Reports: Hx Oral Surgery - Immunizations Immunizations up to date: Yes Hx Diphtheria, Pertussis, Tetanus Vaccination: Yes Review of Systems - Review of Systems -: Yes All other systems reviewed and negative Physical Exam - Vital signs Vitals: Temp Pulse Resp BP Pulse Ox 98.0 F 93 16 131/71 H 100 02/12/19 08:50 02/12/19 08:50 02/12/19 08:50 02/12/19 08:50 02/12/19 08:50 - Notes Notes: PHYSICAL EXAMINATION: GENERAL: Well-appearing, well-nourished and in no acute distress. HEAD: Atraumatic, normocephalic. EYES: Pupils equal round and reactive to light, extraocular movements intact, sclera anicteric, conjunctiva are normal. ENT: EAC clear b/l. TM's intact b/l without erythema, fluid, or perforation. Nares patent and without discharge. oropharynx clear without exudates. No tonsilar hypertrophy or erythema. Moist mucous membranes. No sinus tenderness. NECK: Normal range of motion, supple without lymphadenopathy LUNGS: Breath sounds clear to auscultation bilaterally and equal. No wheezes rales or rhonchi. HEART: Regular rate and rhythm without murmurs, rubs, gallops. ABDOMEN: Soft, nondistended abdomen. No guarding, no rebound. No masses appreciated. Normal bowel sounds present. No CVA tenderness bilaterally. + tenderness to the left mid abdomen. No tenderness at McBurney. Jennings neg. Musculoskeletal: FROM to passive/active. Strength 5+/5. Extremities: No cyanosis, clubbing, or edema b/l. Peripheral pulses 2+. Capillary refill less than 3 seconds. NEUROLOGICAL: Normal speech, normal gait. PSYCH: Normal mood, normal affect. SKIN: Warm, Dry, normal turgor, no rashes or lesions noted. Course - Re-evaluation Re-evalutation: 02/12/19 10:13 Patient is an afebrile, well-hydrated, 33-year-old female who presents emergency department with acute diverticulitis. Vitals are acceptable without significant tachycardia, tachypnea, or hypoxia. PE is otherwise unremarkable aside from the tenderness to her left mid/lower abdomen. Patient is nontoxic-appearing and is tolerating p.o. without difficulty. CBC does show an elevated white count. CMP acceptable. Urinalysis unremarkable. HCG neg. See CT scan results. No further labs or imaging warranted. Low suspicion/risk for acute appendicitis, bowel obstruction, acute cholecystitis, acute cholangitis, perforated diverticulitis, incarcerated hernia, pancreatitis, perforated ulcer, peritonitis, sepsis, pelvic inflammatory disease, ectopic , tubo-ovarian abscess, ovarian torsion, or other systemic emergent condition at this time. Patient is aware that her condition can change from initial presentation and she needs to monitor symptoms closely and seek medical attention if any acute changes. Patient has an allergy to penicillin so I will be sending her home with Cipro and Flagyl. Conservative measures otherwise for symptoms. Recheck with your PCM in 3-5 days. Return to the ED with any worsening/concerning symptoms otherwise as reviewed in discharge. Patient is in agreement. - Vital Signs Vital signs: Temp Pulse Resp BP Pulse Ox 98.0 F 93 16 131/71 H 100 02/12/19 08:50 02/12/19 08:50 02/12/19 08:50 02/12/19 08:50 02/12/19 08:50 - Laboratory Result Diagrams: 02/12/19 09:40 02/12/19 09:40 Laboratory results interpreted by me: 02/12/19 09:40 WBC 15.4 H MCH 26.8 L RDW 14.6 H Absolute Neutrophils 11.2 H Discharge - Discharge Clinical Impression: Acute diverticulitis Condition: Stable Disposition: HOME, SELF-CARE Instructions: Diverticulitis ([facility]), Ciprofloxacin ([facility]), Metronidazole ([facility]) Additional Instructions: Maintain adequate fluid and food intake [place] diet ([employer] Bananas, rice, apples, toast, etc tylenol/motrin if needed Monitor for any worsening symptoms Make sure you are staying hydrated enough to urinate and have normal BM's Recheck with your PCM in 3-5 days Consider consult with Gastroenterology for ongoing/worsening symptoms Return to the ED with any worsening symptoms and/or development of fever, headache, chest pain, palpitations, syncope, shortness of breath, trouble breathing, abdominal pain, n/v/d, blood in stool/urine, weakness, or other worsening symptoms that are concerning to you. Prescriptions: Ciprofloxacin HCl [Cipro 500 mg Tablet] 500 mg PO BID #20 tablet Metronidazole [Flagyl] 500 mg PO TID #30 tablet Forms: Elevated Blood Pressure Referrals: MARGO SWANSON MD [ACTIVE STAFF] - Follow up as needed
[2019-02-12 11:28] VITALS: BP 118/75
== END 2019-02-12 12:27 | disposition home or self-care (01) ==
LOC: ER 08:31
DX: K57.92 Diverticulitis of intestine, part unspecified, without perforation or abscess without bleeding (principal); K80.20 Calculus of gallbladder without cholecystitis without obstruction; R10.32 Left lower quadrant pain; R11.0 Nausea; J45.909 Unspecified asthma, uncomplicated; Z88.0 Allergy status to penicillin; Z91.018 Allergy to other foods; Z87.892 Personal history of anaphylaxis; Z91.010 Allergy to peanuts
CPT/HCPCS: 36415; 74177; 80053; 81001; 81025; 84703; 85025; 99284

== ENCOUNTER 2019-11-08 10:11 | Emergency (ER) | payer OTHER ==
[2019-11-08 11:09] VITALS: BP 111/68
--- NOTE | 2019-11-08 12:11 | ER Document Report ---
ED General - General Chief Complaint: Abdominal Pain Stated Complaint: ABDOMINAL PAIN Time Seen by Provider: 11/08/19 12:00 Mode of Arrival: Ambulatory Information source: Patient Notes: 34-year-old female with history of diverticulitis presents today with left lower quadrant abdominal pain since Friday. Reports constant pain that sharp at times. Denies fever vomiting diarrhea. Reports she had diverticulitis approximately maybe 1 year ago. She reports she really watches her diet has not eaten anything that would cause a flare. Denies pain with void. Declines pain medication TRAVEL OUTSIDE OF THE [place] IN LAST 30 DAYS: No - HPI Onset: Other Onset/Duration: Persistent Quality of pain: Sharp Associated symptoms: None Exacerbated by: Denies Relieved by: Denies Similar symptoms previously: No Recently seen / treated by doctor: No - Related Data Allergies/Adverse Reactions: tree nut Allergy (Severe, Verified 02/12/19 08:33) difficulty swallowing, esophogeal irritation Penicillins Allergy (Mild, Verified 02/12/19 08:33) Generalized rash peanut Allergy (Verified 02/12/19 08:33) Anaphylaxis Past Medical History - General Information source: Patient Last Menstrual Period: October 23, 2019 - Social History Smoking Status: Never Smoker Chew tobacco use (# tins/day): No Frequency of alcohol use: Social Drug Abuse: None Family History: Reviewed & Not Pertinent Patient has suicidal ideation: No Patient has homicidal ideation: No Pulmonary Medical History: Reports: Hx Asthma Neurological Medical History: Reports: Hx Migraine Renal/ Medical History: Denies: Hx Peritoneal Dialysis GI Medical History: Reports: Hx Diverticulitis Musculoskeletal Medical History: Reports Hx Musculoskeletal Trauma Past Surgical History: Reports: Hx Oral Surgery - Immunizations Immunizations up to date: Yes Hx Diphtheria, Pertussis, Tetanus Vaccination: Yes Review of Systems - Review of Systems Notes: Review HPI for review of systems., All other systems negative Physical Exam - Vital signs Vitals: Temp Pulse Resp BP Pulse Ox 97.7 F 67 16 111/68 100 11/08/19 11:08 11/08/19 11:08 11/08/19 11:08 11/08/19 11:08 11/08/19 11:08 - Notes Notes: PHYSICAL EXAMINATION: GENERAL: Well-appearing and in no acute distress HEAD: Atraumatic, normocephalic. EYES: Pupils equal round extraocular movements intact, sclera anicteric, conjunctiva are normal. ENT: nares patent, Moist mucous membranes. NECK: Normal range of motion, supple without lymphadenopathy LUNGS: CTAB and equal. No wheezes rales or rhonchi. HEART: Regular rate and rhythm without murmurs ABDOMEN: Soft, LLQ tenderness. No guarding, no rebound EXTREMITIES: Normal range of motion, NEUROLOGICAL: Cranial nerves grossly intact. Normal sensory/motor exams. PSYCH: Normal mood, normal affect. SKIN: Warm, Dry, normal turgor, no rashes or lesions noted Course - Re-evaluation Re-evalutation: 11/08/19 14:46 34-year-old female with history of diverticulitis presents today with left lower quadrant abdominal pain. Abdomen/Pelvis CT 11/08/19 12:07 IMPRESSION: 1. MILD EARLY DIVERTICULITIS IN THE LEFT LOWER QUADRANT ADJACENT TO THE DISTAL DESCENDING COLON. NO EVIDENCE OF ABSCESS OR PERFORATION. 2. NO OTHER SIGNIFICANT OR ACUTE FINDING IN THE ABDOMEN OR PELVIS ON CT SCAN WITH IV CONTRAST. 11/08/19 13:35 11/08/19 13:35 MCV 78 fl (80-97) L 11/08/19 13:35 MCH 25.4 pg (27.0-33.4) L 11/08/19 13:35 MCHC 32.8 g/dL (32.0-36.0) 11/08/19 13:35 RDW 16.8 % (11.5-14.0) H 11/08/19 13:35 Seg Neutrophils % 58.4 % (42-78) 11/08/19 13:35 Chloride 103 mmol/L (98-107) 11/08/19 13:35 Carbon Dioxide 29 mmol/L (22-30) 11/08/19 13:35 Anion Gap 10 (5-19) 11/08/19 13:35 Est GFR ( Amer) > 60 (>60) 11/08/19 13:35 Glucose 82 mg/dL (75-110) 11/08/19 13:35 Calcium 10.1 mg/dL (8.4-10.2) 11/08/19 13:35 Total Bilirubin 0.4 mg/dL (0.2-1.3) 11/08/19 13:35 AST 31 U/L (14-36) 11/08/19 13:35 Alkaline Phosphatase 95 U/L (38-126) 11/08/19 13:35 Total Protein 8.4 g/dL (6.3-8.2) H 11/08/19 13:35 Albumin 4.7 g/dL (3.5-5.0) 11/08/19 13:35 Lipase 84.4 U/L (23-300) 11/08/19 13:35 Urine Color COLORLESS 11/08/19 12:08 Urine Appearance CLEAR 11/08/19 12:08 Urine pH 7.0 (5.0-9.0) 11/08/19 12:08 Ur Specific [place] 1.001 11/08/19 12:08 Urine Protein NEGATIVE mg/dL (NEGATIVE) 11/08/19 12:08 Urine Glucose (UA) NEGATIVE mg/dL (NEGATIVE) 11/08/19 12:08 Urine Ketones NEGATIVE mg/dL (NEGATIVE) 11/08/19 12:08 Urine Blood NEGATIVE (NEGATIVE) 11/08/19 12:08 Urine Nitrite NEGATIVE (NEGATIVE) 11/08/19 12:08 Ur Leukocyte Esterase NEGATIVE (NEGATIVE) 11/08/19 12:08 Urine RBC (Auto) 0 /HPF 11/08/19 12:08 11/08/19 19:40 Labs unremarkable, CT shows early diverticulitis. Patient was instructed on Cipro and Flagyl. Instructed to follow-up with GI. She verbalized understanding to all instructions. Dictation of this chart was performed using voice recognition software; therefore, there may be some unintended grammatical errors. - Vital Signs Vital signs: Temp Pulse Resp BP Pulse Ox 97.7 F 67 16 111/68 100 11/08/19 12:02 11/08/19 12:02 11/08/19 12:02 11/08/19 12:02 11/08/19 12:02 - Laboratory Result Diagrams: 11/08/19 13:35 11/08/19 13:35 Laboratory results interpreted by me: 11/08/19 11/08/19 13:35 13:35 MCV 78 L MCH 25.4 L RDW 16.8 H Total Protein 8.4 H - Diagnostic Test Radiology reviewed: Reports reviewed Discharge - Discharge Clinical Impression: Left lower quadrant abdominal pain, Diverticulitis Condition: Stable Disposition: HOME, SELF-CARE Instructions: Abdominal Pain ([facility]), Ciprofloxacin ([facility]), Diverticulitis ([facility]), Metronidazole ([facility]) Additional Instructions: *You have been evaluated for abdominal pain, diverticulitis *Take medication as prescribed *Follow up with a primary care provider within a week for recheck and referral to GI as indicated *Return to ED for worsening condition, changes, needs *Return to ED if not better in 24 hours Prescriptions: Ciprofloxacin HCl [Cipro 500 mg Tablet] 500 mg PO BID #20 tablet Metronidazole [Flagyl 500 mg Tablet] 500 mg PO TID #30 tablet
[2019-11-08 12:24] LABS: APPEARANCE,URINE CLEAR; BILIRUBIN,URINE NEGATIVE (NEGATIVE); COLOR,URINE COLORLESS; GLUCOSE, URINE NEGATIVE (NEGATIVE); KETONES,URINE NEGATIVE (NEGATIVE); LEUKOCYTE ESTERASE,URINE NEGATIVE (NEGATIVE); NITRITE,URINE NEGATIVE (NEGATIVE); PROTEIN,URINE NEGATIVE (NEGATIVE); URINE SPECIFIC GRAVITY 1.001; UROBILINOGEN,URINE NEGATIVE mg/dL (<2.0)
[2019-11-08 13:50] LABS: ABSOLUTE BASOPHILS # (AUTO) 0.1 10^3/uL (0.0-0.2); ABSOLUTE EOSINOPHILS # (AUTO) 0.5 10^3/uL (0.0-0.6); ABSOLUTE LYMPHOCYTES (AUTO) 2.7 10^3/uL (0.5-4.7); ABSOLUTE MONOCYTES (AUTO) 0.6 10^3/uL (0.1-1.4); ABSOLUTE NEUT (AUTO) 5.5 10^3/uL (1.7-8.2); BASOPHILS % (AUTO) 0.9 % (0-2); EOSINOPHILS % (AUTO) 5.5 % (0-6); HEMATOCRIT 37.1 % (36.0-47.0); HEMOGLOBIN 12.2 g/dL (12.0-15.5); LYMPHOCYTES % (AUTO) 28.5 % (13-45); MEAN CORPUSCULAR HEMOGLOBIN 25.4 pg (27.0-33.4); MEAN CORPUSCULAR HGB CONC 32.8 g/dL (32.0-36.0); MEAN CORPUSCULAR VOLUME 78 fl (80-97); MONOCYTES % (AUTO) 6.7 % (3-13); PLATELET COUNT 341 10^3/uL (150-450); RED BLOOD COUNT 4.79 10^6/uL (3.72-5.28); RED CELL DISTRIBUTION WIDTH 16.8 % (11.5-14.0); SEGMENTED NEUTROPHILS % (AUTO) 58.4 % (42-78); TOTAL CELLS COUNTED % (AUTO) 100 %; WHITE BLOOD COUNT 9.4 10^3/uL (4.0-10.5)
--- NOTE | 2019-11-08 14:06 | RADIOLOGY REPORT (SQ) ---
EXAM DESCRIPTION: CT ABD/PELVIS WITH IV ONLY COMPLETED DATE/TIME: 11/08/2019 1:50 pm REASON FOR STUDY: abd pain hx diverticulitis COMPARISON: 02/12/2019. TECHNIQUE: CT scan of the abdomen and pelvis performed using helical scanning technique with dynamic intravenous contrast injection. No oral contrast. Images reviewed with lung, soft tissue, and bone windows. Reconstructed coronal and sagittal MPR images reviewed. Delayed images for evaluation of the urinary system also acquired. All images stored on PACS. All CT scanners at this facility use dose modulation, iterative reconstruction, and/or weight based d osing when appropriate to reduce radiation dose to as low as reasonably achievable (ALARA). [facility]: Dose Right [facility]: CareDose [facility]: Dose Right [facility]: Teradose 4D [facility]: Neverware CONTRAST TYPE AND DOSE: contrast/concentration: Isovue 350.00 mg/ml; Total Contrast Delivered: 88.0 ml; Total Saline Delivered: 70.0 ml RENAL FUNCTION: None required. The patient is less than 50 years old. RADIATION DOSE: CT Rad equipment meets quality standard of care and radiation dose reduction techniq ues were employed. CTDIvol: 10.2 - 13.3 mGy. DLP: 1251 mGy-cm.. LIMITATIONS: None. FINDINGS: LOWER CHEST: No significant findings. No nodules or infiltrates. LIVER: Normal size. No masses. No dilated ducts. SPLEEN: Normal size. No focal lesions. PANCREAS: No masses. No significant calcifications. No adjacent inflammation or peripancreatic fluid collections. Pancreatic duct not dilated. GALLBLADDER: No identified stones by CT criteria. No inflammatory changes to suggest cholecystitis. ADRENAL GLANDS: No significant masses or asymmetry. RIGHT KIDNEY AND URETER: No solid masses. No significant calcifications. No hydronephrosis or hyd roureter. LEFT KIDNEY AND URETER: No solid masses. No significant calcifications. No hydronephrosis or hydr oureter. AORTA AND VESSELS: No aneurysm. No dissection. Renal arteries, SMA, celiac without stenosis. RETROPERITONEUM: No retroperitoneal adenopathy, hemorrhage or masses. BOWEL AND PERITONEAL CAVITY: Scattered colonic diverticuli. Mild focal stranding in the pericolonic soft tissues adjacent to the distal descending colon. No abnormal fluid collection. No extraluminal gas. No free fluid or peritoneal masses. APPENDIX: Normal. PELVIS: No mass. No free fluid. Normal bladder. ABDOMINAL WALL: No masses. No hernias. BONES: No significant or acute findings. OTHER: No other significant finding. IMPRESSION: 1. MILD EARLY DIVERTICULITIS IN THE LEFT LOWER QUADRANT ADJACENT TO THE DISTAL DESCENDING COLON. NO EVIDENCE OF ABSCESS OR PERFORATION. 2. NO OTHER SIGNIFICANT OR ACUTE FINDING IN THE ABDOMEN OR PELVIS ON CT SCAN WITH IV CONTRAST. TECHNICAL DOCUMENTATION: JOB ID: [id number] Quality ID # [id number]: Final reports with documentation of one or more dose reduction techniques (e.g., Au tomated exposure control, adjustment of the mA and/or kV according to patient size, use of iterative reconstruction technique) 2010 [employer]- All Rights Reserved Reading location - IP/workstation name: [email or web address]
[2019-11-08 14:15] LABS: ALBUMIN 4.7 g/dL (3.5-5.0); ALKALINE PHOSPHATASE 95 U/L (38-126); ANION GAP 10 (5-19); ASPARTATE AMINO TRANSFERASE 31 U/L (14-36); BILIRUBIN,DIRECT 0.1 mg/dL (0.0-0.4); BILIRUBIN,TOTAL 0.4 mg/dL (0.2-1.3); BLOOD UREA NITROGEN 10 mg/dL (7-20); CALCIUM 10.1 mg/dL (8.4-10.2); CARBON DIOXIDE 29 mmol/L (22-30); CHLORIDE 103 mmol/L (98-107); GLUCOSE 82 mg/dL (75-110); POTASSIUM 4.6 mmol/L (3.6-5.0); TOTAL PROTEIN 8.4 g/dL (6.3-8.2)
== END 2019-11-08 15:09 | disposition home or self-care (01) ==
LOC: ER 10:11
DX: K57.92 Diverticulitis of intestine, part unspecified, without perforation or abscess without bleeding (principal); R10.32 Left lower quadrant pain; J45.909 Unspecified asthma, uncomplicated; Z91.018 Allergy to other foods; Z88.0 Allergy status to penicillin; Z87.892 Personal history of anaphylaxis; Z91.010 Allergy to peanuts
CPT/HCPCS: 36415; 74177; 80053; 81001; 81025; 83690; 85025; 99284

== ENCOUNTER 2020-08-31 18:43 | Emergency (ER) | payer OTHER ==
[2020-08-31] MEDS ORDERED: IBUPROFEN 800 MG TABLET PO ONE (19:26)
--- NOTE | 2020-08-31 19:27 | ER Document Report ---
ED Medical Screen (RME) - General Chief Complaint: Sore Throat Stated Complaint: SORE THROAT,FEVER,MUSCLE PAIN Time Seen by Provider: 08/31/20 19:11 Information source: Patient Notes: Patient presents complaint of fever, sore throat, chills headache and body ache. Patient complains of low back pain. Patient denies any cough. Patient states fever just started this evening. I have greeted and performed a rapid initial assessment of this patient. A comprehensive ED assessment and evaluation of the patient, analysis of test results and completion of the medical decision making process will be conducted by additional ED providers. TRAVEL OUTSIDE OF THE [place] IN LAST 30 DAYS: No - Related Data Allergies/Adverse Reactions: tree nut Allergy (Severe, Verified 02/12/19 08:33) difficulty swallowing, esophogeal irritation Penicillins Allergy (Mild, Verified 02/12/19 08:33) Generalized rash peanut Allergy (Verified 02/12/19 08:33) Anaphylaxis Past Medical History Pulmonary Medical History: Reports: Hx Asthma Neurological Medical History: Reports: Hx Migraine Renal/ Medical History: Denies: Hx Peritoneal Dialysis GI Medical History: Reports: Hx Diverticulitis Musculoskeltal Medical History: Reports Hx Musculoskeletal Trauma Past Surgical History: Reports: Hx Oral Surgery - Immunizations Immunizations up to date: Yes Hx Diphtheria, Pertussis, Tetanus Vaccination: Yes Physical Exam - Vital signs Vitals: Temp Pulse Resp BP Pulse Ox 102.3 F H 125 H 22 H 113/60 100 08/31/20 19:09 08/31/20 19:09 08/31/20 19:09 08/31/20 19:09 08/31/20 19:09 - General General appearance: Appears well, Alert Notes: Mild exudate noted to right posterior pharynx, patient able to manage oral secretions, no potential airway compromise Course - Vital Signs Vital signs: Temp Pulse Resp BP Pulse Ox 102.3 F H 125 H 22 H 113/60 100 08/31/20 19:09 08/31/20 19:09 08/31/20 19:09 08/31/20 19:09 08/31/20 19:09
[2020-08-31 22:04] LABS: APPEARANCE,URINE CLEAR; BILIRUBIN,URINE NEGATIVE (NEGATIVE); COLOR,URINE STRAW; GLUCOSE, URINE NEGATIVE (NEGATIVE); KETONES,URINE TRACE mg/dL (NEGATIVE); LEUKOCYTE ESTERASE,URINE NEGATIVE (NEGATIVE); NITRITE,URINE NEGATIVE (NEGATIVE); PROTEIN,URINE NEGATIVE (NEGATIVE); URINE SPECIFIC GRAVITY 1.002; UROBILINOGEN,URINE NEGATIVE mg/dL (<2.0)
[2020-08-31 22:14] LABS: A TYPE INFLUENZA AG NEGATIVE (NEGATIVE); B INFLUENZA AG NEGATIVE (NEGATIVE)
[2020-08-31] MEDS ORDERED: DEXAMETHASONE SOD PHOS INJ 10 MG/1 ML VIAL IM ONE (23:28)
[2020-08-31] MEDS ORDERED: ACETAMINOPHEN 325 MG TABLET PO ONE (23:30)
--- NOTE | 2020-08-31 23:30 | ER Document Report ---
ED General - General Chief Complaint: Fever Stated Complaint: SORE THROAT,FEVER,MUSCLE PAIN Time Seen by Provider: 08/31/20 19:11 Primary Care Provider: [facility] [Provider Group] - Follow up as needed TRAVEL OUTSIDE OF THE [place] IN LAST 30 DAYS: No - HPI Notes: Patient is a 35-year-old female who presents with sore throat that began this morning. Patient states she took her temperature this morning and it was normal. She went to work 4 hours began to feel worse. She had a telehealth appointment and was diagnosed with strep throat and prescribed a Z-Chris. Patient went home took her temperature and had a temp of 105 F and came straight to the ED. Patient reports myalgias, and palpable lymph nodes. She denies chest pain, shortness of breath, cough, nasal congestion, nausea, and vomiting. She denies any sick contacts. - Related Data Allergies/Adverse Reactions: tree nut Allergy (Severe, Verified 02/12/19 08:33) difficulty swallowing, esophogeal irritation Penicillins Allergy (Mild, Verified 02/12/19 08:33) Generalized rash peanut Allergy (Verified 02/12/19 08:33) Anaphylaxis Past Medical History - General Information source: Patient - Social History Smoking Status: Never Smoker Frequency of alcohol use: Occasional Drug Abuse: None Family History: Reviewed & Not Pertinent Pulmonary Medical History: Reports: Hx Asthma Neurological Medical History: Reports: Hx Migraine Renal/ Medical History: Denies: Hx Peritoneal Dialysis GI Medical History: Reports: Hx Diverticulitis Musculoskeletal Medical History: Reports Hx Musculoskeletal Trauma Past Surgical History: Reports: Hx Oral Surgery - Immunizations Immunizations up to date: Yes Hx Diphtheria, Pertussis, Tetanus Vaccination: Yes Review of Systems - Review of Systems Constitutional: See HPI EENT: See HPI Cardiovascular: No symptoms reported Respiratory: No symptoms reported Gastrointestinal: No symptoms reported Genitourinary: No symptoms reported Female Genitourinary: No symptoms reported Musculoskeletal: No symptoms reported Skin: No symptoms reported Hematologic/Lymphatic: No symptoms reported Neurological/Psychological: No symptoms reported Physical Exam - Vital signs Vitals: Temp Pulse Resp BP Pulse Ox 102.3 F H 125 H 22 H 113/60 100 08/31/20 19:09 08/31/20 19:09 08/31/20 19:09 08/31/20 19:09 10/08/20 19:09 - Notes Notes: PHYSICAL EXAMINATION: VITALS: Vitals reviewed and patient is febrile. GENERAL: Well-appearing, well-nourished and in no acute distress. HEAD: Atraumatic, normocephalic. EYES: Pupils equal round and reactive to light, extraocular movements intact, sclera anicteric, conjunctiva are normal. ENT: Nares patent, oropharynx erythemous with exudates and tonsillar swelling. Moist mucous membranes. TMs clear bilaterally. NECK: Normal range of motion, supple. Palpable anterior cervical lymph nodes bilaterally. LUNGS: Breath sounds clear to auscultation bilaterally and equal. No wheezes rales or rhonchi. HEART: Regular, rate, and rhythm without murmurs. ABDOMEN: Soft, nontender, normoactive bowel sounds. No guarding, no rebound. No masses appreciated. EXTREMITIES: Normal range of motion, no pitting or edema. No cyanosis. NEUROLOGICAL: No focal neurological deficits. Moves all extremities spontaneously and on command. PSYCH: Normal mood, normal affect. SKIN: Warm, Dry, normal turgor, no rashes or lesions noted. Course - Re-evaluation Re-evalutation: Presentation of sore throat in an otherwise well-appearing patient. Rapid strep is positive. History and exam are not consistent with a retropharyngeal abscess or peritonsillar abscess. Airway is patent. No difficulty handling oral secretions. Patient is febrile with a temp of 102.3 that improved with antipyretics. Patient has been treated with an IM dose of decadron. Prescription given for azithromycin 500mg PO for five days. At this time will discharge with return precautions and follow-up recommendations. Verbal discharge instructions given a the bedside and opportunity for questions given. Medication warnings reviewed. Patient is in agreement with this plan and has verbalized understanding of return precautions and the need for primary care follow-up in the next week. - Vital Signs Vital signs: Temp Pulse Resp BP Pulse Ox 97.7 F 76 18 115/65 99 08/31/20 23:45 08/31/20 23:45 08/31/20 23:45 08/31/20 23:45 08/31/20 23:45 - Laboratory Laboratory results interpreted by me: 08/31/20 21:32 Urine Ketones TRACE H Urine Blood SMALL H Discharge - Discharge Clinical Impression: Strep pharyngitis, Sore throat Fever Qualifiers: Fever type: unspecified Qualified Code(s): R50.9 - Fever, unspecified Condition: Stable Disposition: HOME, SELF-CARE Additional Instructions: Strep Throat Your sore throat is due to the streptococcus germ (strep throat). Strep throat usually makes you feel quite ill with fever and aches, headache, swollen sore throat, and tender bumps under the angles of the jaw. Strep throat requires antibiotic treatment. Although the sore throat may go away by itself, complications such as rheumatic fever, kidney disease, or throat abscess can occur. We usually prescribe antibiotics by mouth. Be sure to take the medicine until it's gone. If you stop early, the strep may come back. If you are vomiting, are severely ill, or can't remember to take pills, we can give you an antibiotic shot. Take acetaminophen or ibuprofen for pain and fever. Sip frequent clear liquids, or use popsicles or ice chips. Anesthetic sprays or lozenges may help. Make sure the air in the room is not too dry. Avoid using decongestants or antihistamines. Call the doctor if there is no improvement in three days, or if you have difficulty breathing, increasing throat pain, high fever, rash, or frequent vomiting. Prescriptions: Azithromycin 500 mg PO DAILY 5 Days #5 tablet Referrals: [facility] [Provider Group] - Follow up as needed
[2020-08-31 23:46] VITALS: BP 115/65
== END 2020-09-01 00:03 | disposition home or self-care (01) ==
LOC: ER 18:43
DX: J02.0 Streptococcal pharyngitis (principal); R50.9 Fever, unspecified; M79.10 Myalgia, unspecified site; J45.909 Unspecified asthma, uncomplicated; Z91.018 Allergy to other foods; Z88.0 Allergy status to penicillin; Z87.892 Personal history of anaphylaxis; Z91.010 Allergy to peanuts
CPT/HCPCS: 99284; 96372; 87880; 81001; 87804; J1100